=== PATIENT | female | born 1980 | race African-American/Black ===

== ENCOUNTER 2020-12-15 17:47 | Emergency (ER) | payer MEDICAID, OTHER ==
[~2020-12-15] VITALS: Ht 165.1 cm; Wt 113.6 kg
[~2020-12-15 17:47] MED LIST: AMLO-258 PO
[2020-12-15] MEDS ORDERED: ACETAMINOPHEN 325 MG TABLET PO ONE (19:45)
[2020-12-15 20:45] VITALS: BP 126/79
== END 2020-12-15 21:00 | disposition home or self-care (01) ==
LOC: EMS 17:49
DX: S50.11XA Contusion of right forearm, initial encounter (principal); S83.91XA Sprain of unspecified site of right knee, initial encounter; I10 Essential (primary) hypertension; W19.XXXA Unspecified fall, initial encounter; Y93.89 Activity, other specified; Y92.89 Other specified places as the place of occurrence of the external cause; Y99.8 Other external cause status
CPT/HCPCS: 99284; 73090-TC; 73562-TC; Z7502; Z7610